=== PATIENT | male | born 1945 | race Caucasian/White ===

== ENCOUNTER 2018-02-05 14:25 | Inpatient (IN) | payer MEDICARE, OTHER ==
--- NOTE | 2018-02-05 15:02 | PDOC ---
Attending Attestation - Resident Resident Name: CharmaineJerilyn petit - HPI HPI: 02/05/18 15:36 Pt presents to the ED complaining of several days of fever without associated symptoms. Denies nausea or vomiting, abdominal pain, cough or shortness of breath. - Physicial Exam PE: 02/06/18 15:02 Agree with resident exam. Patient is alert and in no acute distress. Lungs are clear, abdomen is soft, non tender and non distended, heart has regular rate and rhythm but is tachycardic. - Medical Decision Making 02/06/18 15:03 Pt presents to the ED complaining of fever without associated symptoms. Febrile in the ED to 102. LAbs are within normal limits, lactate is 1.5, but given age and peristent fever, will check flu swab and admit for observation.
[2018-02-05] MEDS ORDERED: SODIUM CHLORIDE 0.9% 1000 ML INFUS.BAG IV STA (15:13)
[2018-02-05] MEDS ORDERED: ACETAMINOPHEN 1000 MG/100 ML VIAL (NON FORMULARY) IVPB ONE (15:32)
[2018-02-05] MEDS ORDERED: PIPERACILLIN/TAZOB 3.375 GM 3.375 GM in DEXTROSE 5%-WATER - 50 ML IVPB ONE (15:32)
[2018-02-05] MEDS ORDERED: ACETAMINOPHEN INJECTION 100 ML IVPB ONE (15:35)
[2018-02-05] MEDS ORDERED: PIPERACILLIN/TAZOB 3.375 GM 3.375 GM/50 ML BAG IVPB ONE (15:36)
--- NOTE | 2018-02-05 15:38 | PDOC ---
History of Present Illness - General Chief Complaint: SIRS, Suspected/Possible Stated Complaint: Cold Symptoms/fever Time Seen by Provider: 02/05/18 14:58 History Source: Patient, Family (daughter) Exam Limitations: Language Barrier - History of Present Illness Initial Comments: 02/05/18 15:36 Pt is a 72yo m with PMH of HTN, HLD, DM presenting to ED with fever, headache and lower back pain. Pt says has had fever and cough since , but did not want to come to the emergency room. He says that today when he was at work, somebody told him to get evaluated. Admits to constipation and lower urine output. Denies chest pain, SOB, palpitations, abominal pain, n/v/d, neck pain, recent surgery, recent travel, trauma, rashes, urinary symptoms. PCP: Zack PMH: see hpi PSH: see hpi Social: denies Allergies: nkda Meds: glipizide, metformin, see med rec Past History - Past Medical History Allergies/Adverse Reactions: Allergies Allergy/AdvReac Type Severity Reaction Status Date / Time No Known Allergies Allergy Verified 02/05/18 14:33 Home Medications: Ambulatory Orders Glipizide [Glucotrol -] 10 mg PO BID 08/21/15 Metformin HCl [Glucophage] 1,000 mg PO BID 08/21/15 Amlodipine Besylate [Norvasc -] 5 mg PO DAILY 02/05/18 Aspirin [ASA -] 81 mg PO DAILY 02/05/18 Atorvastatin Ca [Lipitor] 10 mg PO HS 02/05/18 COPD: No Diabetes: Yes HTN: Yes Hypercholesterolemia: Yes - Suicide/Smoking/Psychosocial Hx Smoking History: Never smoked Information on smoking cessation initiated: No Hx Alcohol Use: No Drug/Substance Use Hx: No Substance Use Type: None Review of Systems - Review of Systems Able to Perform ROS?: Yes Constitutional: Yes: Fever. No: Chills, Weakness HEENTM: No: Symptoms Reported Respiratory: Yes: Cough. No: Shortness of Breath, Hemoptysis Cardiac (ROS): No: Chest Pain, Lightheadedness, Palpitations, Syncope ABD/GI: Yes: Constipated. No: Diarrhea, Nausea, Rectal Bleeding, Vomiting, Tarry Stools : No: Symptoms Reported, Testicular Mass, Testicular Swelling, Testicular Pain Musculoskeletal: Yes: Back Pain (lower back pain) Integumentary: No: Symptoms Reported Neurological: Yes: Headache. No: Numbness, Tingling, Tremors *Physical Exam - Vital Signs Last Vital Signs Temp Pulse Resp BP Pulse Ox 102.2 F H 114 H 20 150/104 H 96 02/05/18 15:23 02/05/18 15:30 02/05/18 15:30 02/05/18 15:30 02/05/18 15:30 - Physical Exam General Appearance: Yes: Nourished, Appropriately Dressed. No: Apparent Distress HEENT: positive: EOMI, DAYLIN, Normal ENT Inspection, TMs Normal, Pharynx Normal Neck: positive: Trachea midline, Supple. negative: Carotid bruit, Lymphadenopathy (R), Lymphadenopathy (L) Respiratory/Chest: positive: Rapid RR, Decreased Breath Sounds (L lobes), Crackles (L lower lobes). negative: Lungs Clear, Normal Breath Sounds, Labored Respiration, Stridor, Wheezing Cardiovascular: positive: S1, S2, Tachycardia, Irregular. negative: Edema, JVD , Murmur Vascular Pulses: Carotid (R): 2+, Carotid (L): 2+, Dorsalis-Pedis (R): 2+, Doralis-Pedis (L): 2+ Gastrointestinal/Abdominal: positive: Normal Bowel Sounds, Soft, Protuberent. negative: Guarding, Rebound, Tenderness Musculoskeletal: negative: CVA Tenderness, Muscle Spasm Extremity: positive: Normal Capillary Refill, Pelvis Stable Integumentary: positive: Normal Color, Dry, Warm Neurologic: positive: policy manager II-XII NML intact, Fully Oriented, Alert, Normal Mood/ Affect, Normal Response, Motor Strength /5 ED Treatment Course - LABORATORY CBC & Chemistry Diagram: 02/05/18 15:52 02/05/18 15:23 - RADIOLOGY Radiology Studies Ordered: Category Date Time Status CHEST X-RAY PORTABLE* [RAD] Stat Radiology 02/05/18 15:13 Ordered - Medications Given in the ED: ED Medications Discontinued Medications Generic Name Dose Route Start Last Admin Trade Name Freq PRN Reason Stop Dose Admin Sodium Chloride 2,123 ml 02/05/18 15:13 02/05/18 15:22 Normal Saline - 30 ml/kg (2123 ml) 02/05/18 15:14 2,123 ml IV Administration ONCE STA Medical Decision Making - Medical Decision Making Pt is a 72yo m with PMH of HTN, HLD, DM presenting to ED with fever, headache and lower back pain. Pt says has had fever and cough since Vitals: tachycardic in 120s, febrile 102.2, saturating well on RA PE: decreased breath sounds and crackles in L lung wright. Warm to touch. DDx: sepsis, most likely pna. Pt meets SIRS criteria, will do sepsis workup. started on fluids, vanc and zosyn. given Tylenol iv. EKG: sinus with PAC. Lac 1.5, WBC 10.5, Na 130. UA negative CXR: left lobe infiltrate. tachy, tachypneic, normotensive, now saturating mid 90s. now copmlaining of SOB oral temp 103.3, saturating mid 90s. Given NC 2L. and ibuprofen 400mg. Will order ctab and ct chest CT consilidation in L lobe. REst of CT no pathology. Pt started on Levaquin (QTc normal). Will admit pt for Sepsis (2 sirs + source) due to pna. Pt tacycrdic and tachypneic but normotensive. Stable for floor. Pt admitted to hospitalist *DC/Admit/Observation/Transfer Diagnosis at time of Disposition: Sepsis Qualifiers: Sepsis type: sepsis due to unspecified organism Qualified Code(s): A41.9 - Sepsis, unspecified organism PNA (pneumonia) Qualifiers: Pneumonia type: due to unspecified organism Laterality: left Lung location: lower lobe of lung Qualified Code(s): J18.1 - Lobar pneumonia, unspecified organism - Discharge Dispostion Condition at time of disposition: Good Decision to Admit order: Yes - Referrals - Patient Instructions - Post Discharge Activity
[2018-02-05 15:41] LABS: VENOUS PC02 35.8 mmHg (38-52); VENOUS PH 7.44 (7.32-7.42); VENOUS PO2 40.9 mmHg (28-48)
[2018-02-05 15:42] LABS: INR 1.13 (0.83-1.09); PROTHROMBIN TIME (PATIENT) 13.3 SEC (9.7-13.0)
[2018-02-05 15:46] LABS: ACTIVATED PTT 24.2 SECONDS (25.2-36.5)
[2018-02-05 15:58] LABS: ALBUMIN 3.6 g/dl (3.4-5.0); ALK PHOS 81 U/L (45-117); ANION GAP 12 MMOL/L (8-16); BILIRUBIN,TOTAL 0.5 mg/dL (0.2-1); BLOOD UREA NITROGEN 28 mg/dL (7-18); CALCIUM 8.7 mg/dL (8.5-10.1); CHLORIDE 95 mmol/L (98-107); CO2 24 mmol/L (21-32); CREATININE 1.1 mg/dL (0.55-1.3); GLUCOSE,RANDOM 179 mg/dL (74-106); POTASSIUM 4.4 mmol/L (3.5-5.1); SGOT/AST 80 U/L (15-37); SGPT/ALT 53 U/L (13-61); SODIUM 130 mmol/L (136-145); TOT PROT 6.7 g/dl (6.4-8.2)
[2018-02-05 16:01] LABS: BASO % 0.2 % (0-2.0); HEMATOCRIT 39.4 % (35.4-49); HEMOGLOBIN 12.9 GM/dL (11.7-16.9); LYMPH % 7.3 % (8-40); MCH 29.3 pg (25.7-33.7); MCHC 32.7 g/dl (32.0-35.9); MEAN CELL VOLUME 89.4 fl (80-96); MEAN PLT VOLUME 10.5 fl (7.5-11.1); MONO % 4.6 % (3.8-10.2); NEUT % 87.9 % (42.8-82.8); PLATELET COUNT 152 K/MM3 (134-434); RBC 4.41 M/mm3 (4.00-5.60); WHITE BLOOD COUNT 10.5 K/mm3 (4.0-10.0)
[2018-02-05 16:19] LABS: PH,URINE 6.5 (5.0-8.0); URINE APPEARANCE CLEAR; URINE BILIRUBIN NEGATIVE (<2.0 mg/dL); URINE COLOR YELLOW; URINE GLUCOSE (UA) NEGATIVE (NEGATIVE); URINE KETONE 1+ (NEGATIVE); URINE PROTEIN 2+ (NEGATIVE)
[2018-02-05 16:20] LABS: URINE LEUK ESTERASE NEGATIVE (NEGATIVE); URINE NITRITE NEGATIVE (NEGATIVE); URINE UROBILINOGEN 4.0 E.U/dl mg/dL (0.2-1.0)
[2018-02-05 16:51] LABS: EPI CELLS 1+ /HPF (FEW); URIC ACID CRYSTALS 1+ /hpf (NONE SEEN); URINE BACTERIA 1+ /hpf (NONE SEEN)
[2018-02-05] MEDS ORDERED: IBUPROFEN 600 MG TABLET (FP) PO ONE ×3 (19:45→19:48)
[2018-02-05] MEDS ORDERED: SODIUM CHLORIDE 1,000 ML IV SCH (20:45)
--- NOTE | 2018-02-05 21:44 | HP ---
CHIEF COMPLAINT: fever HISTORY OF PRESENT ILLNESS: 72 year old male with a PMH of HTN, HLD, DM presented to the ED for fever since . Patient reports that it occurred randomly, without any preceding symptoms. Reports mild headache and back pain. 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 Currently, patient denies any chest pain, SOB, nausea, vomiting, diarrhea, chills, abdominal pain, cough. states that he still feels febrile. Patient denies any sick contacts. Reports visiting the [place] 3 months ago. Denies getting flu shot. ER course was notable for: (1) Tmax 103.3 (2) tachycardic 110 (3) CT chest + PNA in L lung Recent Travel: [place] ago PAST MEDICAL HISTORY: HTN, HLD, DM PAST SURGICAL HISTORY: denies Social History: Smoking: denies Alcohol: denies Drugs: denies Family History: denies Allergies No Known Allergies Allergy (Verified 02/05/18 14:33) HOME MEDICATIONS: Home Medications Medication Instructions Recorded Glipizide [Glucotrol -] 10 mg PO BID 08/21/15 Metformin HCl [Glucophage] 1,000 mg PO BID 08/21/15 Amlodipine Besylate [Norvasc -] 5 mg PO DAILY 02/05/18 Aspirin [ASA -] 81 mg PO DAILY 02/05/18 Atorvastatin Ca [Lipitor] 10 mg PO HS 02/05/18 REVIEW OF SYSTEMS CONSTITUTIONAL: fever Absent: chills, diaphoresis, generalized weakness, malaise, loss of appetite, weight change HEENT: Absent: rhinorrhea, nasal congestion, throat pain, throat swelling, difficulty swallowing, mouth swelling, ear pain, eye pain, visual changes CARDIOVASCULAR: Absent: chest pain, syncope, palpitations, irregular heart rate, lightheadedness , peripheral edema RESPIRATORY: Absent: cough, shortness of breath, dyspnea with exertion, orthopnea, wheezing, stridor, hemoptysis GASTROINTESTINAL: Absent: abdominal pain, abdominal distension, nausea, vomiting, diarrhea, constipation, melena, hematochezia GENITOURINARY: Absent: dysuria, frequency, urgency, hesitancy, hematuria, flank pain, genital pain MUSCULOSKELETAL: Absent: myalgia, arthralgia, joint swelling, back pain, neck pain SKIN: Absent: rash, itching, pallor HEMATOLOGIC/IMMUNOLOGIC: Absent: easy bleeding, easy bruising, lymphadenopathy, frequent infections ENDOCRINE: Absent: unexplained weight gain, unexplained weight loss, heat intolerance, cold intolerance NEUROLOGIC: Absent: headache, focal weakness or paresthesias, dizziness, unsteady gait, seizure, mental status changes, bladder or bowel incontinence PSYCHIATRIC: Absent: anxiety, depression, suicidal or homicidal ideation, hallucinations. PHYSICAL EXAMINATION Vital Signs - 24 hr 02/05/18 02/05/18 02/05/18 14:35 15:10 15:23 Temperature 102.2 F H 102.2 F H Pulse Rate 126 H 122 H Pulse Rate [ Left Radial] Respiratory 22 H Rate Blood Pressure 158/89 Blood Pressure [Right Arm] O2 Sat by Pulse 100 100 Oximetry (%) 02/05/18 02/05/18 02/05/18 15:30 16:13 16:19 Temperature Pulse Rate Pulse Rate [ 114 H 112 H Left Radial] Respiratory 20 20 Rate Blood Pressure Blood Pressure 150/104 H 128/86 [Right Arm] O2 Sat by Pulse 96 97 99 Oximetry (%) 02/05/18 17:51 Temperature 103.3 F H Pulse Rate Pulse Rate [ 110 H Left Radial] Respiratory 20 Rate Blood Pressure Blood Pressure 138/75 [Right Arm] O2 Sat by Pulse 98 Oximetry (%) GENERAL: A&Ox3, no acute distress EYES: PERRLA, EOMI ENT: Moist mucus membranes NECK: No JVD LUNGS: CTA, mild crackles noted in base of L upper lobe (or apex of L lower lobe ) HEART: RRR, no murmurs ABDOMEN: Soft, nontender, BS present MUSCULOSKELETAL: No CVA Tenderness EXTREMITIES: 2+ pulses, no edema. NEUROLOGICAL: Cranial nerves II-XII intact. Laboratory Results - last 24 hr 02/05/18 02/05/18 02/05/18 15:00 15:00 15:07 WBC Corrected WBC (auto) RBC Hgb Hct MCV MCH MCHC RDW Plt Count MPV Absolute Neuts (auto) Neutrophils % Lymphocytes % Monocytes % Eosinophils % Basophils % Nucleated RBC % Platelet Estimate Platelet Comment PT with INR INR PTT (Actin FS) VBG pH 7.44 H POC VBG pCO2 35.8 L POC VBG pO2 40.9 Mixed VBG HCO3 23.7 Sodium Potassium Chloride Carbon Dioxide Anion Gap BUN Creatinine Creat Clearance w eGFR Random Glucose Lactic Acid 1.5 Calcium Total Bilirubin AST ALT Alkaline Phosphatase Troponin I Total Protein Albumin Urine Color Yellow Urine Appearance Clear Urine pH 6.5 Ur Specific [facility] 1.020 Urine Protein 2+ H Urine Glucose (UA) Negative Urine Ketones 1+ H Urine Blood Negative Urine Nitrite Negative Urine Bilirubin Negative Urine Urobilinogen 4.0 e.u/dl Ur Leukocyte Esterase Negative Urine WBC (Auto) 0-3 Urine RBC (Auto) 0-3 Ur Epithelial Cells 1+ Uric Acid Crystals 1+ Urine Bacteria 1+ 02/05/18 02/05/18 02/05/18 15:23 15:23 15:23 WBC Cancelled Corrected WBC (auto) Cancelled RBC Cancelled Hgb Cancelled Hct Cancelled MCV Cancelled MCH Cancelled MCHC Cancelled RDW Cancelled Plt Count Cancelled MPV Cancelled Absolute Neuts (auto) Cancelled Neutrophils % Cancelled Lymphocytes % Cancelled Monocytes % Cancelled Eosinophils % Cancelled Basophils % Cancelled Nucleated RBC % Cancelled Platelet Estimate Cancelled Platelet Comment Cancelled PT with INR 13.30 H INR 1.13 H PTT (Actin FS) 24.2 L VBG pH POC VBG pCO2 POC VBG pO2 Mixed VBG HCO3 Sodium 130 L Potassium 4.4 Chloride 95 L Carbon Dioxide 24 Anion Gap 12 BUN 28 H Creatinine 1.1 Creat Clearance w eGFR > 60 Random Glucose 179 H Lactic Acid Calcium 8.7 Total Bilirubin 0.5 AST 80 H ALT 53 Alkaline Phosphatase 81 Troponin I Total Protein 6.7 Albumin 3.6 Urine Color Urine Appearance Urine pH Ur Specific [facility] Urine Protein Urine Glucose (UA) Urine Ketones Urine Blood Urine Nitrite Urine Bilirubin Urine Urobilinogen Ur Leukocyte Esterase Urine WBC (Auto) Urine RBC (Auto) Ur Epithelial Cells Uric Acid Crystals Urine Bacteria 02/05/18 02/05/18 15:23 15:52 WBC 10.5 H Corrected WBC (auto) RBC 4.41 Hgb 12.9 Hct 39.4 MCV 89.4 MCH 29.3 MCHC 32.7 RDW 14.0 Plt Count 152 D MPV 10.5 Absolute Neuts (auto) 9.2 H Neutrophils % 87.9 H D Lymphocytes % 7.3 L D Monocytes % 4.6 Eosinophils % 0.0 D Basophils % 0.2 Nucleated RBC % 0 Platelet Estimate Platelet Comment PT with INR INR PTT (Actin FS) VBG pH POC VBG pCO2 POC VBG pO2 Mixed VBG HCO3 Sodium Potassium Chloride Carbon Dioxide Anion Gap BUN Creatinine Creat Clearance w eGFR Random Glucose Lactic Acid Calcium Total Bilirubin AST ALT Alkaline Phosphatase Troponin I < 0.02 Total Protein Albumin Urine Color Urine Appearance Urine pH Ur Specific [facility] Urine Protein Urine Glucose (UA) Urine Ketones Urine Blood Urine Nitrite Urine Bilirubin Urine Urobilinogen Ur Leukocyte Esterase Urine WBC (Auto) Urine RBC (Auto) Ur Epithelial Cells Uric Acid Crystals Urine Bacteria ASSESSMENT/PLAN: 72 year old male with a PMH of HTN, HLD, DM presented to the ED for fever since and diagnosed with sepsis 2/2 pneumonia #Sepsis 2/2 Pneumonia: patient meets sepsis criteria and has L lobe consolidation suggestive of pneumonia -CT chest prelim [facility] read: "moderate airspace consolidation in superior segment of left lower lobe with associated air bronchograms suspicious for pneumonia" -Levaquin 750mg daily -ID consultation appreciated -normal saline @ 100cc/hr, 1 bag ordered -sputum cultures -blood cultures ordered -legionella antigen ordered -influenza swab negative #Hypertension: normotensive -continue amlodipine 5mg PO #Hyperlipidemia: chronic -continue atorvastatin 10mg PO #Diabetes Mellitus: chronic -hold home meds -BGMs -ISS #FEN NS @ 100cc/hr hyponatremic, repeat level in AM after hydration Sodium controlled diet #Prophylaxis -lovenox #Disposition -admit med surg Visit type - Emergency Visit Emergency Visit: Yes ED Registration Date: 02/05/18 Care time: The patient presented to the Emergency Department on the above date and was hospitalized for further evaluation of their emergent condition. - New Patient This patient is new to me today: Yes Date on this admission: 02/06/18 - Critical Care Critical Care patient: No
--- NOTE | 2018-02-05 22:31 | PN ---
Teaching Attending Note Name of Resident: Tai Carnes ATTENDING PHYSICIAN STATEMENT I saw and evaluated the patient. I reviewed the resident's note and discussed the case with the resident. I agree with the resident's findings and plan as documented. SUBJECTIVE: OBJECTIVE: ASSESSMENT AND PLAN: this is a 72 year old male with a PMH of HTN, HLD, DM presented to the ED for fever since . Reports mild headache and back pain. Currently, patient denies any chest pain, SOB, nausea, vomiting, diarrhea, chills, abdominal pain, cough. states that he still feels febrile. Patient denies any sick contacts. Reports [place] the [place] 3 [place] ago. Denies getting flu shot plan: admit for CAP start levofloxacin 750mg daily obtain legionella antigen ID evaluation c/w home medication f/u blood cultures
[2018-02-05] MEDS ORDERED: ATORVASTATIN CA 40 MG TABLET (FP) ONE (23:08)
[2018-02-05] MEDS ORDERED: ENOXAPARIN NA (PORCINE) 40 MG/0.4 ML DISP.SYRIN SQ ONE (23:09)
[2018-02-05] MEDS: ENOXAPARIN NA (PORCINE) 40 MG/0.4 ML DISP.SYRIN SQ SCH (23:09)
[2018-02-05] MEDS: ATORVASTATIN CA 10 MG TABLET (FP) PO SCH (23:09)
[2018-02-05] MEDS ORDERED: ATORVASTATIN CA 10 MG TABLET (FP) ONE (23:12)
[2018-02-06 01:49] VITALS: BMI 24.5
[2018-02-06] MEDS: ACETAMINOPHEN 325 MG TABLET (FP) PO PRN ×3 (05:40→17:49)
[2018-02-06] MEDS: INSULIN SLIDING SCALE (NOVOLOG) 1 VIAL SQ SCH ×5 (06:15→22:07)
[2018-02-06] MEDS ORDERED: INSULIN (NOVOLOG) ASPART 100 UNITS/ML 10ML VIAL ONE ×2 (06:42→22:03)
[2018-02-06] MEDS ORDERED: INSULIN (LEVEMIR) 100 UNITS/ML UNITS SQ ONE (06:43)
[2018-02-06 07:00] LABS: HEMATOCRIT 35.9 % (35.4-49); HEMOGLOBIN 11.9 GM/dL (11.7-16.9); MCH 29.3 pg (25.7-33.7); MCHC 33.2 g/dl (32.0-35.9); MEAN CELL VOLUME 88.2 fl (80-96); MEAN PLT VOLUME 9.3 fl (7.5-11.1); PLATELET COUNT 138 K/MM3 (134-434); RBC 4.07 M/mm3 (4.00-5.60); RDW 14.1 % (11.9-15.9); WHITE BLOOD COUNT 8.2 K/mm3 (4.0-10.0)
[2018-02-06 09:03] LABS: ANION GAP 14 MMOL/L (8-16); BLOOD UREA NITROGEN 15 mg/dL (7-18); CALCIUM 7.9 mg/dL (8.5-10.1); CHLORIDE 98 mmol/L (98-107); CO2 22 mmol/L (21-32); CREATININE 0.8 mg/dL (0.55-1.3); GLUCOSE,RANDOM 64 mg/dL (74-106); MAGNESIUM 1.5 mg/dL (1.8-2.4); PHOSPHOROUS 1.9 mg/dL (2.5-4.9); POTASSIUM 3.5 mmol/L (3.5-5.1); SODIUM 134 mmol/L (136-145)
--- NOTE | 2018-02-06 09:16 | PN ---
Progress Note (short form) - Note Progress Note: c/o generalized fatigue and cough. denies Cp, fever, chills, N/V/C/D Current Medications Generic Name Dose Route Start Last Admin Trade Name Maximiliano PRN Reason Stop Dose Admin Acetaminophen 650 mg 02/05/18 20:40 02/06/18 05:40 Tylenol - PO 650 mg Q4H PRN Administration FEVER Amlodipine Besylate 5 mg 02/06/18 10:00 Norvasc - PO DAILY [facility] Aspirin 81 mg 02/06/18 10:00 Asa - PO DAILY [facility]AR[facility]EN Atorvastatin Calcium 10 mg 02/05/18 22:00 02/05/18 23:09 Lipitor - PO 10 mg HS FARHEEN Administration Enoxaparin Sodium 40 mg 02/05/18 21:00 02/05/18 23:09 Lovenox - SQ 40 mg DAILY [facility] Administration Levofloxacin 750 mg in 150 mls @ 100 mls/hr 02/05/18 21:00 02/05/18 22:09 Levaquin 750 Mg Premixed Ivpb - IVPB 100 mls/hr DAILY FARHEEN Administration Protocol Influenza Virus Vaccine Quadrival 60 mcg 02/06/18 10:00 Flulaval Quad [id number] IM 02/06/18 10:01 .ONCE ONE Insulin Aspart 0 vial 02/05/18 22:00 02/06/18 08:13 Novolog Vial Sliding Scale - SQ Not Given ACHS [facility] Protocol Last Vital Signs Temp Pulse Resp BP Pulse Ox 103.1 F H 128 H 24 H 121/74 97 02/06/18 05:48 02/06/18 05:48 02/06/18 05:48 02/06/18 05:48 02/06/18 01:08 General NAD, slightly diaphoretic CV S1 S2 tachy Lungs rhonchi L base, no wheezing Abdomen soft NT/ND Extremities no pedal edema CBCD WBC 8.2 K/mm3 (4.0-10.0) 02/06/18 06:30 RBC 4.07 M/mm3 (4.00-5.60) 02/06/18 06:30 Hgb 11.9 GM/dL (11.7-16.9) 02/06/18 06:30 Hct 35.9 % (35.4-49) 02/06/18 06:30 MCV 88.2 fl (80-96) 02/06/18 06:30 MCHC 33.2 g/dl (32.0-35.9) 02/06/18 06:30 RDW 14.1 % (11.9-15.9) 02/06/18 06:30 Plt Count 138 K/MM3 (134-434) 02/06/18 06:30 MPV 9.3 fl (7.5-11.1) D 02/06/18 06:30 CMP Sodium 134 mmol/L (136-145) L 02/06/18 06:30 Potassium 3.5 mmol/L (3.5-5.1) 02/06/18 06:30 Chloride 98 mmol/L (98-107) 02/06/18 06:30 Carbon Dioxide 22 mmol/L (21-32) 02/06/18 06:30 Anion Gap 14 MMOL/L (8-16) 02/06/18 06:30 BUN 15 mg/dL (7-18) 02/06/18 06:30 Creatinine 0.8 mg/dL (0.55-1.3) 02/06/18 06:30 Creat Clearance w eGFR > 60 (>60) 02/06/18 06:30 Calcium 7.9 mg/dL (8.5-10.1) L 02/06/18 06:30 Total Bilirubin 0.5 mg/dL (0.2-1) 02/05/18 15:23 AST 80 U/L (15-37) H 02/05/18 15:23 ALT 53 U/L (13-61) 02/05/18 15:23 Alkaline Phosphatase 81 U/L (45-117) 02/05/18 15:23 Total Protein 6.7 g/dl (6.4-8.2) 02/05/18 15:23 Albumin 3.6 g/dl (3.4-5.0) 02/05/18 15:23 Microbiology 02/05/18 16:41 Nasopharyngeal Swab Influenza Types A,B Antigen - Final 02/05/18 16:41 Nasopharyngeal Swab - Final A/P 72yo M with PMH HTN, DM and dyslipidemia presented to the ER with Fevers and constituitional symptoms and found to be septic due to PNA 1. Sepsis due to PNA- Tm103.3. remains tachycardic. will give 1 L NS bolus and cont NS @100cc/H, on Levaquin day 2. ID was consulted. Flu swab negative. f/u Legionella 2. Hyponatremia- possible dehydration. improved. 3. Hypomagnesemia- Mg po 4. Hypophosphatemia- Neutraphos 5. HTN- controlled. on home meds 6. DM- hold oral agents. ISS and BGM 7. DVT ppx- lovenox Visit type - Emergency Visit Emergency Visit: Yes ED Registration Date: 02/05/18 Care time: The patient presented to the Emergency Department on the above date and was hospitalized for further evaluation of their emergent condition. - New Patient This patient is new to me today: Yes Date on this admission: 02/06/18 - Critical Care Critical Care patient: No - Discharge Referral Referred to [facility] No
[2018-02-06] MEDS ORDERED: FLU VACCINE QUAD 60 MCG/0.5 ML (MDV 18-19) IM ONE (10:00)
[2018-02-06] MEDS ORDERED: SODIUM CHLORIDE 1,000 ML IV STA (10:01)
[2018-02-06] MEDS: ENOXAPARIN NA (PORCINE) 40 MG/0.4 ML DISP.SYRIN SQ SCH (10:49)
[2018-02-06] MEDS: amLODIPine BESYLATE 5 MG TABLET (FP) PO SCH (10:49)
[2018-02-06] MEDS: ASPIRIN 81 MG CHEWABLE TABLETS PO SCH (10:49)
[2018-02-06] MEDS: SODIUM CHLORIDE 1,000 ML IV SCH (10:50)
[2018-02-06] MEDS: NAPH,MB-DB/K PH,MBDB POWDER PACKET PO ONE ×2 (11:01→11:54)
[2018-02-06] MEDS: MAGNESIUM OXIDE 400 MG TABLET (FP) PO ONE ×2 (11:01→11:53)
--- NOTE | 2018-02-06 11:50 | PN ---
Progress Note (short form) - Note Progress Note: ID Consult dictated Community acquired v. atypical L pneumonia Possible sepsis secondary to pneumonia Pending sepsis workup empiric ceftriaxone/ levaquin
--- NOTE | 2018-02-06 13:33 | CONS ---
DATE OF CONSULTATION: DATE OF DICTATION: 02/06/2018 The patient is a 72-year-old male evaluated for left-sided pneumonia. He was admitted to the hospital on February 05, 2018, with complaints of fever, headache, and cough. He reports that symptoms began around , February 03, 2018. He presented to the emergency room, where he was febrile to 102 and tachycardic. A chest x-ray showed a left-sided pneumonia. A CAT scan, which had not been officially read, shows what appears to be a dense left lower lobe consolidation. Patient is noted to have cough, however, he reports difficulty expectorating sputum. He denies any hemoptysis. No complaints of dyspnea or pleuritic-type chest pain. Patient lives at home in the community. He denies any ill contacts. No recent hospitalizations. No recent antibiotic therapy. He works in a grocery store, is a nonsmoker. He traveled to the [place] 3 months ago and was well while he was there. He has not received pneumococcal or influenza vaccines. Past medical history positive for hypertension, hyperlipidemia, diabetes mellitus. No known allergies. MEDICATIONS: Glucotrol, Glucophage, Tylenol, Norvasc, Lipitor, aspirin. SOCIAL HISTORY: As per HPI. SYSTEMS REVIEW: Neurologic: No loss of consciousness, seizure activity, or focal weakness. Cardiac: Negative chest pain or palpitations. Respiratory: Negative cough or sputum production. Gastrointestinal: Negative vomiting or diarrhea. Genitourinary: Negative for urinary tract infection. LABORATORY DATA: White count 8.2, hematocrit 35.9, platelet count 138. Creatinine 0.8. Urinalysis: 0 to 3 white cells, phosphorus 1.9. Flu swab negative. Legionella antigen negative. PHYSICAL EXAMINATION: General: He is supine in bed, awake and alert, in no acute distress. His breathing is non-labored. He is noted to have cough. Vital Signs: T-max 103.1. Blood pressure 120/74. Pulse 128, regular. Respirations 20 per minute. Eyes: Sclerae anicteric. Heart Sounds: S1, S2. Lungs: Rales at the left base and midlung field. Abdomen: Soft. No tenderness elicited. No mass, rebound or rigidity. Extremities: Negative for edema. IMPRESSION: 1. Community-acquired versus atypical left-sided pneumonia. 2. Possible sepsis secondary to pneumonia. 3. Diabetes mellitus. Await sputum culture, blood cultures. Empiric antibiotic coverage with ceftriaxone 2 g IV piggyback daily and Levaquin 750 mg IV piggyback daily. Further recommendations pending cultures. Will follow. Thank you for the kind referral. DOMINGUEZ MOORE M.D. [id number]
[2018-02-06] MEDS ORDERED: DEXTROSE 5%-WATER 100 ML IVPB ONE (13:44)
[2018-02-06] MEDS: CEFTRIAXONE 2 GM in DEXTROSE 5%-WATER 100 ML IVPB SCH (13:56)
--- NOTE | 2018-02-06 14:02 | EKG ---
Test Reason : Blood Pressure : / mmHG Vent. Rate : 119 BPM Atrial Rate : 119 BPM P-R Int : 144 ms QRS Dur : 064 ms QT Int : 318 ms P-R-T Axes : 050 010 026 degrees QTc Int : 447 ms POOR DATA QUALITY, INTERPRETATION MAY BE ADVERSELY AFFECTED SINUS TACHYCARDIA WITH PREMATURE ATRIAL COMPLEXES NONSPECIFIC ST ABNORMALITY ABNORMAL ECG NO PREVIOUS ECGS AVAILABLE Confirmed by MD Lita, Raul ([id number]) on 02/06/2018 2:01:50 PM Referred By: Confirmed By:Raul London MD
[2018-02-06] MEDS: ATORVASTATIN CA 10 MG TABLET (FP) PO SCH (22:05)
[2018-02-07] MEDS: SODIUM CHLORIDE 1,000 ML IV SCH ×3 (03:15→15:37)
[2018-02-07 06:19] LABS: BASO % 0.2 % (0-2.0); HEMATOCRIT 35.3 % (35.4-49); HEMOGLOBIN 11.8 GM/dL (11.7-16.9); LYMPH % 15.4 % (8-40); MCH 29.2 pg (25.7-33.7); MCHC 33.3 g/dl (32.0-35.9); MEAN CELL VOLUME 87.7 fl (80-96); MEAN PLT VOLUME 9.8 fl (7.5-11.1); MONO % 6.8 % (3.8-10.2); NEUT % 77.6 % (42.8-82.8); PLATELET COUNT 139 K/MM3 (134-434); RBC 4.03 M/mm3 (4.00-5.60); RDW 13.9 % (11.9-15.9); WHITE BLOOD COUNT 6.8 K/mm3 (4.0-10.0)
[2018-02-07] MEDS: INSULIN SLIDING SCALE (NOVOLOG) 1 VIAL SQ SCH ×4 (06:20→21:07)
[2018-02-07 06:36] LABS: ANION GAP 13 MMOL/L (8-16); BLOOD UREA NITROGEN 11 mg/dL (7-18); CALCIUM 7.4 mg/dL (8.5-10.1); CHLORIDE 93 mmol/L (98-107); CO2 25 mmol/L (21-32); CREATININE 0.8 mg/dL (0.55-1.3); GLUCOSE,RANDOM 144 mg/dL (74-106); MAGNESIUM 1.5 mg/dL (1.8-2.4); PHOSPHOROUS 1.8 mg/dL (2.5-4.9); POTASSIUM 3.1 mmol/L (3.5-5.1); SODIUM 130 mmol/L (136-145)
[2018-02-07] MEDS ORDERED: POTASSIUM CHLORIDE TABS 20 MEQ TABLET.ER (FP) PO ONE (06:45)
[2018-02-07] MEDS ORDERED: MAGNESIUM OXIDE 400 MG TABLET (FP) PO ONE (06:48)
--- NOTE | 2018-02-07 08:23 | PN ---
Physical Exam: SUBJECTIVE: Patient seen and examined at bedside. NO acute events overnight- patient had a low grade of 100.3 overnight and only needed to get tylenol once. He is still having a cough, however, it is non-productive. He denies any chest pain/shortness of breath/nausea or vomiting OBJECTIVE: Vital Signs Period Temp Pulse Resp BP Sys/Schwartz Pulse Ox Last 24 Hr 100.3 F-103.4 F 112-116 16-20 107-136/68-74 97-97 GENERAL: The patient is awake, alert, resting comfortably, in no acute distress. EYES:no scleral icterus NECK: no JVD appreciated LUNGS slight rhonchi appreciated at the left lung base HEART: Regular rate and rhythm, S1, S2 without murmur, rub or gallop. ABDOMEN: Soft, nontender, nondistended, normoactive bowel sounds, no guarding, no rebound, no hepatosplenomegaly, no masses. EXTREMITIES: 2+ pulses, warm, well-perfused, no edema.. PSYCH: Normal mood, normal affect. SKIN: Warm, dry, normal turgor, no rashes or lesions noted Laboratory Results - last 24 hr 02/06/18 02/06/18 02/06/18 06:30 11:52 17:43 WBC RBC Hgb Hct MCV MCH MCHC RDW Plt Count MPV Absolute Neuts (auto) Neutrophils % Lymphocytes % Monocytes % Eosinophils % Basophils % Nucleated RBC % Sodium 134 L Potassium 3.5 Chloride 98 Carbon Dioxide 22 Anion Gap 14 BUN 15 Creatinine 0.8 Creat Clearance w eGFR > 60 POC Glucometer 132 127 Random Glucose 64 L Calcium 7.9 L Phosphorus 1.9 L Magnesium 1.5 L 02/06/18 02/07/18 02/07/18 21:59 05:30 05:30 WBC 6.8 RBC 4.03 Hgb 11.8 Hct 35.3 L MCV 87.7 MCH 29.2 MCHC 33.3 RDW 13.9 Plt Count 139 MPV 9.8 Absolute Neuts (auto) 5.3 Neutrophils % 77.6 Lymphocytes % 15.4 D Monocytes % 6.8 Eosinophils % 0.0 Basophils % 0.2 Nucleated RBC % 0 Sodium 130 L Potassium 3.1 L Chloride 93 L Carbon Dioxide 25 Anion Gap 13 BUN 11 Creatinine 0.8 Creat Clearance w eGFR > 60 POC Glucometer 194 Random Glucose 144 H Calcium 7.4 L Phosphorus 1.8 L Magnesium 1.5 L 02/07/18 06:18 WBC RBC Hgb Hct MCV MCH MCHC RDW Plt Count MPV Absolute Neuts (auto) Neutrophils % Lymphocytes % Monocytes % Eosinophils % Basophils % Nucleated RBC % Sodium Potassium Chloride Carbon Dioxide Anion Gap BUN Creatinine Creat Clearance w eGFR POC Glucometer 145 Random Glucose Calcium Phosphorus Magnesium Active Medications Generic Name Dose Route Start Last Admin Trade Name Freq PRN Reason Stop Dose Admin Acetaminophen 650 mg 02/05/18 20:40 02/06/18 17:49 Tylenol - PO 650 mg Q4H PRN Administration FEVER Amlodipine Besylate 5 mg 02/06/18 10:00 02/06/18 10:49 Norvasc - PO 5 mg DAILY FARHEEN Administration Aspirin 81 mg 02/06/18 10:00 02/06/18 10:49 Asa - PO 81 mg DAILY FARHEEN Administration Atorvastatin Calcium 10 mg 02/05/18 22:00 02/06/18 22:05 Lipitor - PO 10 mg HS FARHEEN Administration Enoxaparin Sodium 40 mg 02/05/18 21:00 02/06/18 10:49 Lovenox - SQ 40 mg DAILY FARHEEN Administration Levofloxacin 750 mg in 150 mls @ 100 mls/hr 02/05/18 21:00 02/06/18 10:50 Levaquin 750 Mg Premixed Ivpb - IVPB 100 mls/hr DAILY FARHEEN Administration Protocol Sodium Chloride 1,000 mls @ 100 mls/hr 02/06/18 10:15 02/07/18 03:15 Normal Saline - IV 100 mls/hr ASDIR FARHEEN Administration Ceftriaxone Sodium 2 gm/ 100 mls @ 100 mls/hr 02/06/18 12:00 02/06/18 13:56 Dextrose IVPB 100 mls/hr DAILY FARHEEN Administration Protocol Insulin Aspart 0 vial 02/05/18 22:00 02/07/18 06:20 Novolog Vial Sliding Scale - SQ Not Given ACHS FARHEEN Protocol Potassium Phos/Sodium Phos 1 packet 02/07/18 10:00 Phos-Nak Packet - PO DAILY FARHEEN ASSESSMENT/PLAN: 72 y/o male with PMH of HTN, HLD, DM, who presented to the emergency room with fevers, cough and constitutional symptoms found to have a left lower love consolidation consistent with pneumonia. # Sepsis 2/2 PNA: Tmax overnight was 100.3 -flu swab negative -presumptive legionella antigen negative -Levaquin 750mg day 3 -Ceftriaxone 2grams day 2 -ID on board- recs appreciated -tylenol 650 PRN for fevers #HTN BP is well controlled -c/w home medications #DM -ISS -BGMS ACHS #HLD atorvastatin 10 daily F/E/N NS @100mls/hr hyponatremia- repleted and monitor hypokalemmia- repleted and monitor hypophosphatemia-repleted and monitor hypomagnesium- repleted and monitor diabetic diet PPX: lovenox Problem List - Problems (1) PNA (pneumonia) Code(s): J18.9 - PNEUMONIA, UNSPECIFIED ORGANISM Qualifiers: Pneumonia type: due to unspecified organism Laterality: left Lung location: lower lobe of lung Qualified Code(s): J18.1 - Lobar pneumonia, unspecified organism (2) Sepsis Code(s): A41.9 - SEPSIS, UNSPECIFIED ORGANISM Qualifiers: Sepsis type: sepsis due to unspecified organism Qualified Code(s): A41.9 - Sepsis, unspecified organism Visit type - Emergency Visit Emergency Visit: Yes ED Registration Date: 02/05/18 Care time: The patient presented to the Emergency Department on the above date and was hospitalized for further evaluation of their emergent condition. - New Patient This patient is new to me today: No - Critical Care Critical Care patient: No
[2018-02-07] MEDS ORDERED: DEXTROSE 5%-WATER 100 ML IVPB ONE (09:41)
[2018-02-07] MEDS: NAPH,MB-DB/K PH,MBDB POWDER PACKET PO SCH (09:51)
[2018-02-07] MEDS: ENOXAPARIN NA (PORCINE) 40 MG/0.4 ML DISP.SYRIN SQ SCH (09:51)
[2018-02-07] MEDS: ASPIRIN 81 MG CHEWABLE TABLETS PO SCH (09:51)
[2018-02-07] MEDS: amLODIPine BESYLATE 5 MG TABLET (FP) PO SCH (09:51)
[2018-02-07] MEDS: CEFTRIAXONE 2 GM in DEXTROSE 5%-WATER 100 ML IVPB SCH (11:21)
--- NOTE | 2018-02-07 13:41 | PN ---
Teaching Attending Note Name of Resident: Rochelle Santacruz ATTENDING PHYSICIAN STATEMENT I saw and evaluated the patient. I reviewed the resident's note and discussed the case with the resident. I agree with the resident's findings and plan as documented. SUBJECTIVE:states he feels better today but continues to have cough. Denies Cp, fever or chills OBJECTIVE: Last Vital Signs Temp Pulse Resp BP Pulse Ox 98.6 F 74 20 106/79 97 02/07/18 09:33 02/07/18 09:33 02/07/18 09:33 02/07/18 09:33 02/06/18 21:00 General NAD Lungs Crackles L base. improved respiratory effort ASSESSMENT AND PLAN: 72yo M with PMH HTN, DM and dyslipidemia presented to the ER with Fevers and constituitional symptoms and found to be septic due to PNA 1. Sepsis due to PNA- Tm103.4. clinically appears confused. can d/c IVF if eating well. Ceftriaxone started yesterday. cont Levaquin day 3. ID was consulted. Flu swab negative. f/u Legionella 2. Hyponatremia- possible dehydration. improved. 3. Hypomagnesemia- Mg po 4. Hypophosphatemia- Neutraphos 5. HTN- controlled. on home meds 6. DM- hold oral agents. ISS and BGM 7. DVT ppx- lovenox
[2018-02-07] MEDS: ACETAMINOPHEN 325 MG TABLET (FP) PO PRN ×2 (13:46→21:03)
--- NOTE | 2018-02-07 14:25 | PN ---
Progress Note, Physician History of Present Illness: Reports cough with scant sputum production No c/o chest pain or dyspnea Remains febrile WBC improved - Current Medication List Current Medications: Active Medications Acetaminophen (Tylenol -) 650 mg PO Q4H PRN PRN Reason: FEVER Last Admin: 02/07/18 13:46 Dose: 650 mg Amlodipine Besylate (Norvasc -) 5 mg PO DAILY FARHEEN Last Admin: 02/07/18 09:51 Dose: 5 mg Aspirin (Asa -) 81 mg PO DAILY FARHEEN Last Admin: 02/07/18 09:51 Dose: 81 mg Atorvastatin Calcium (Lipitor -) 10 mg PO HS FARHEEN Last Admin: 02/06/18 22:05 Dose: 10 mg Enoxaparin Sodium (Lovenox -) 40 mg SQ DAILY FARHEEN Last Admin: 02/07/18 09:51 Dose: 40 mg Levofloxacin (Levaquin 750 Mg Premixed Ivpb -) 750 mg in 150 mls @ 100 mls/hr IVPB DAILY FARHEEN; Protocol Last Admin: 02/07/18 09:51 Dose: 100 mls/hr Sodium Chloride (Normal Saline -) 1,000 mls @ 100 mls/hr IV ASDIR FARHEEN Last Admin: 02/07/18 11:22 Dose: Not Given Ceftriaxone Sodium 2 gm/ (Dextrose) 100 mls @ 100 mls/hr IVPB DAILY FARHEEN; Protocol Last Admin: 02/07/18 11:21 Dose: 100 mls/hr Insulin Aspart (Novolog Vial Sliding Scale -) 0 vial SQ ACHS FARHEEN; Protocol Last Admin: 02/07/18 12:09 Dose: 2 units Potassium Phos/Sodium Phos (Phos-Nak Packet -) 1 packet PO DAILY FARHEEN Last Admin: 02/07/18 09:51 Dose: 1 packet - Objective Vital Signs: Vital Signs Temperature 98.6 F 02/07/18 09:33 Pulse Rate 74 02/07/18 09:33 Respiratory Rate 20 02/07/18 09:33 Blood Pressure 106/79 02/07/18 09:33 O2 Sat by Pulse Oximetry (%) 97 02/06/18 21:00 Constitutional: Yes: No Distress Cardiovascular: Yes: Regular Rate and Rhythm, S1, S2 Respiratory: Yes: Other (crepitations, bases) Gastrointestinal: Yes: Normal Bowel Sounds, Soft. No: Tenderness Edema: No Labs: CBC, BMP 02/07/18 05:30 02/07/18 05:30 INR, PTT INR 1.13 (0.83-1.09) H 02/05/18 15:23 Assessment/Plan Community acquired v. atypical LLL pneumonia R/O sepsis secondary to pneumonia Await c/s Continue ceftriaxone/ levaquin
[2018-02-07] MEDS: ATORVASTATIN CA 10 MG TABLET (FP) PO SCH (21:04)
[2018-02-08] MEDS: SODIUM CHLORIDE 1,000 ML IV SCH ×2 (02:45→12:26)
[2018-02-08] MEDS: INSULIN SLIDING SCALE (NOVOLOG) 1 VIAL SQ SCH ×4 (06:01→21:18)
[2018-02-08 07:40] LABS: HEMATOCRIT 36.6 % (35.4-49); HEMOGLOBIN 12.2 GM/dL (11.7-16.9); MCH 29.4 pg (25.7-33.7); MCHC 33.3 g/dl (32.0-35.9); MEAN CELL VOLUME 88.2 fl (80-96); MEAN PLT VOLUME 9.7 fl (7.5-11.1); PLATELET COUNT 158 K/MM3 (134-434); RBC 4.15 M/mm3 (4.00-5.60); RDW 14.2 % (11.9-15.9); WHITE BLOOD COUNT 5.8 K/mm3 (4.0-10.0)
[2018-02-08 08:00] LABS: ANION GAP 12 MMOL/L (8-16); BLOOD UREA NITROGEN 13 mg/dL (7-18); CALCIUM 8.2 mg/dL (8.5-10.1); CHLORIDE 95 mmol/L (98-107); CO2 24 mmol/L (21-32); CREATININE 0.8 mg/dL (0.55-1.3); GLUCOSE,RANDOM 137 mg/dL (74-106); MAGNESIUM 1.7 mg/dL (1.8-2.4); PHOSPHOROUS 2.7 mg/dL (2.5-4.9); SODIUM 132 mmol/L (136-145)
[2018-02-08] MEDS ORDERED: MAGNESIUM OXIDE 400 MG TABLET (FP) PO ONE (08:45)
[2018-02-08] MEDS ORDERED: DEXTROSE 5%-WATER 100 ML IVPB ONE (09:31)
--- NOTE | 2018-02-08 10:43 | PN ---
Progress Note, Physician History of Present Illness: OOB in chair Denies cough/ sputum No c/o chest pain or dyspnea Remains febrile WBC improved - Current Medication List Current Medications: Active Medications Acetaminophen (Tylenol -) 650 mg PO Q4H PRN PRN Reason: FEVER Last Admin: 02/07/18 21:03 Dose: 650 mg Amlodipine Besylate (Norvasc -) 5 mg PO DAILY [facility] Last Admin: 02/07/18 09:51 Dose: 5 mg Aspirin (Asa -) 81 mg PO DAILY FARHEEN Last Admin: 02/07/18 09:51 Dose: 81 mg Atorvastatin Calcium (Lipitor -) 10 mg PO HS [facility] Last Admin: 02/07/18 21:04 Dose: 10 mg Enoxaparin Sodium (Lovenox -) 40 mg SQ DAILY FARHEEN Last Admin: 02/07/18 09:51 Dose: 40 mg Levofloxacin (Levaquin 750 Mg Premixed Ivpb -) 750 mg in 150 mls @ 100 mls/hr IVPB DAILY FARHEEN; Protocol Last Admin: 02/07/18 09:51 Dose: 100 mls/hr Sodium Chloride (Normal Saline -) 1,000 mls @ 100 mls/hr IV ASDIR FARHEEN Last Admin: 02/08/18 02:45 Dose: 100 mls/hr Ceftriaxone Sodium 2 gm/ (Dextrose) 100 mls @ 100 mls/hr IVPB DAILY FARHEEN; Protocol Last Admin: 02/07/18 11:21 Dose: 100 mls/hr Insulin Aspart (Novolog Vial Sliding Scale -) 0 vial SQ ACHS FARHEEN; Protocol Last Admin: 02/08/18 06:01 Dose: 2 units Potassium Phos/Sodium Phos (Phos-Nak Packet -) 1 packet PO DAILY FARHEEN Last Admin: 02/07/18 09:51 Dose: 1 packet - Objective Vital Signs: Vital Signs Temperature 99.1 F 02/08/18 10:11 Pulse Rate 78 02/08/18 10:11 Respiratory Rate 20 02/08/18 10:11 Blood Pressure 108/63 02/08/18 10:11 O2 Sat by Pulse Oximetry (%) 97 02/07/18 21:00 Constitutional: Yes: No Distress Eyes: Yes: Conjunctiva Clear Cardiovascular: Yes: Regular Rate and Rhythm, S1, S2 Respiratory: Yes: Other (rales L base) Gastrointestinal: Yes: Normal Bowel Sounds, Soft. No: Tenderness Edema: Yes Edema: LLE: 1+, RLE: 1+ Labs: CBC, BMP 02/08/18 06:30 02/08/18 06:30 INR, PTT INR 1.13 (0.83-1.09) H 02/05/18 15:23 Assessment/Plan Community acquired v. atypical LLL pneumonia R/O sepsis secondary to pneumonia Continue ceftriaxone/ levaquin
[2018-02-08] MEDS: CEFTRIAXONE 2 GM in DEXTROSE 5%-WATER 100 ML IVPB SCH (11:04)
--- NOTE | 2018-02-08 11:18 | PN ---
Physical Exam: SUBJECTIVE: Patient seen and examined at bedside. States he is feeling better and his cough is improving. he did ahve a fever TMAX of 102.9 overnight. He denies any CP/SOB/N OBJECTIVE: Vital Signs Period Temp Pulse Resp BP Sys/Schwartz Pulse Ox Last 24 Hr 99.0 F-102.9 F 78-106 18-20 108-122/57-84 97 GENERAL: The patient is awake, alert, and fully oriented, in no acute distress. HEAD: Normal with no signs of trauma. EYES: PERRL, extraocular movements intact, sclera anicteric, conjunctiva clear. No ptosis. ENT: Ears normal, nares patent, oropharynx clear without exudates, moist mucous membranes. NECK: Trachea midline, full range of motion, supple. LUNGS: Breath sounds equal, clear to auscultation bilaterally, no wheezes, no crackles, no accessory muscle use. HEART: Regular rate and rhythm, S1, S2 without murmur, rub or gallop. ABDOMEN: Soft, nontender, nondistended, normoactive bowel sounds, no guarding, no rebound, no hepatosplenomegaly, no masses. EXTREMITIES: 2+ pulses, warm, well-perfused, no edema. NEUROLOGICAL: Cranial nerves II through XII grossly intact. Normal speech, gait not observed. PSYCH: Normal mood, normal affect. SKIN: Warm, dry, normal turgor, no rashes or lesions noted Laboratory Results - last 24 hr 02/07/18 02/07/18 02/07/18 12:08 16:53 21:06 WBC RBC Hgb Hct MCV MCH MCHC RDW Plt Count MPV Sodium Potassium Chloride Carbon Dioxide Anion Gap BUN Creatinine Creat Clearance w eGFR POC Glucometer 171 138 181 Random Glucose Calcium Phosphorus Magnesium 02/08/18 02/08/18 02/08/18 05:58 06:30 06:30 WBC 5.8 RBC 4.15 Hgb 12.2 Hct 36.6 MCV 88.2 MCH 29.4 MCHC 33.3 RDW 14.2 Plt Count 158 MPV 9.7 Sodium 132 L Potassium 4.0 Chloride 95 L Carbon Dioxide 24 Anion Gap 12 BUN 13 Creatinine 0.8 Creat Clearance w eGFR > 60 POC Glucometer 152 Random Glucose 137 H Calcium 8.2 L Phosphorus 2.7 Magnesium 1.7 L Active Medications Generic Name Dose Route Start Last Admin Trade Name Freq PRN Reason Stop Dose Admin Acetaminophen 650 mg 02/05/18 20:40 02/07/18 21:03 Tylenol - PO 650 mg Q4H PRN Administration FEVER Amlodipine Besylate 5 mg 02/06/18 10:00 02/07/18 09:51 Norvasc - PO 5 mg DAILY FARHEEN Administration Aspirin 81 mg 02/06/18 10:00 02/07/18 09:51 Asa - PO 81 mg DAILY FARHEEN Administration Atorvastatin Calcium 10 mg 02/05/18 22:00 02/07/18 21:04 Lipitor - PO 10 mg HS FARHEEN Administration Enoxaparin Sodium 40 mg 02/05/18 21:00 02/07/18 09:51 Lovenox - SQ 40 mg DAILY FARHEEN Administration Levofloxacin 750 mg in 150 mls @ 100 mls/hr 02/05/18 21:00 02/07/18 09:51 Levaquin 750 Mg Premixed Ivpb - IVPB 100 mls/hr DAILY FARHEEN Administration Protocol Sodium Chloride 1,000 mls @ 100 mls/hr 02/06/18 10:15 02/08/18 02:45 Normal Saline - IV 100 mls/hr ASDIR FARHEEN Administration Ceftriaxone Sodium 2 gm/ 100 mls @ 100 mls/hr 02/06/18 12:00 02/08/18 11:04 Dextrose IVPB 100 mls/hr DAILY FARHEEN Administration Protocol Insulin Aspart 0 vial 02/05/18 22:00 02/08/18 06:01 Novolog Vial Sliding Scale - SQ 2 units ACHS FARHEEN Administration Protocol Potassium Phos/Sodium Phos 1 packet 02/07/18 10:00 02/07/18 09:51 Phos-Nak Packet - PO 1 packet DAILY FARHEEN Administration ASSESSMENT/PLAN: 72 y/o male with PMH of HTN, HLD, DM, who presented to the emergency room with fevers, cough and constitutional symptoms found to have a left lower love consolidation consistent with pneumonia. # Sepsis 2/2 PNA: Tmax overnight was 102.9 -presumptive legionella antigen negative -Levaquin 750mg day 4 -Ceftriaxone 2grams day 3 -ID on board- recs appreciated -tylenol 650 PRN for fevers #HTN BP is well controlled -c/w home medications #DM -ISS -BGMS ACHS #HLD atorvastatin 10 daily F/E/N NS @100mls/hr hypomagnesium- repleted diabetic diet PPX: lovenox Problem List - Problems (1) PNA (pneumonia) Code(s): J18.9 - PNEUMONIA, UNSPECIFIED ORGANISM Qualifiers: Pneumonia type: due to unspecified organism Laterality: left Lung location: lower lobe of lung Qualified Code(s): J18.1 - Lobar pneumonia, unspecified organism (2) Sepsis Code(s): A41.9 - SEPSIS, UNSPECIFIED ORGANISM Qualifiers: Sepsis type: sepsis due to unspecified organism Qualified Code(s): A41.9 - Sepsis, unspecified organism Visit type - Emergency Visit Emergency Visit: Yes ED Registration Date: 02/05/18 Care time: The patient presented to the Emergency Department on the above date and was hospitalized for further evaluation of their emergent condition. - New Patient This patient is new to me today: No - Critical Care Critical Care patient: No
[2018-02-08] MEDS: ENOXAPARIN NA (PORCINE) 40 MG/0.4 ML DISP.SYRIN SQ SCH (11:54)
[2018-02-08] MEDS: amLODIPine BESYLATE 5 MG TABLET (FP) PO SCH (11:54)
[2018-02-08] MEDS: ASPIRIN 81 MG CHEWABLE TABLETS PO SCH (11:54)
[2018-02-08] MEDS: NAPH,MB-DB/K PH,MBDB POWDER PACKET PO SCH (11:55)
--- NOTE | 2018-02-08 12:54 | PN ---
Teaching Attending Note Name of Resident: Rochelle Santacruz ATTENDING PHYSICIAN STATEMENT I saw and evaluated the patient. I reviewed the resident's note and discussed the case with the resident. I agree with the resident's findings and plan as documented. SUBJECTIVE:states he feels better today. states cough is no longer productive. denies CP, SOB, fever, chills, N/V/C/D OBJECTIVE: Last Vital Signs Temp Pulse Resp BP Pulse Ox 99.1 F 78 20 108/63 97 02/08/18 10:11 02/08/18 10:11 02/08/18 10:11 02/08/18 10:11 02/07/18 21:00 General NAD Lungs Crackles L base. improved respiratory effort ASSESSMENT AND PLAN: 72yo M with PMH HTN, DM and dyslipidemia presented to the ER with Fevers and constituitional symptoms and found to be septic due to PNA 1. Sepsis due to PNA- Tm102.9. clinically appears improved. leukocytosis resolved. will cont Ceftriaxone day 3 and levaquin day 4. repeat Cx sent. legionella negaitve. spoke with ID. 2. Hyponatremia- possible dehydration. improved. 3. Hypomagnesemia- Mg po 4. Hypophosphatemia- resolved 5. HTN- controlled. on home meds 6. DM- hold oral agents. ISS and BGM 7. DVT ppx- lovenox
[2018-02-08] MEDS: ATORVASTATIN CA 10 MG TABLET (FP) PO SCH (21:27)
[2018-02-09 06:53] LABS: ANION GAP 12 MMOL/L (8-16); BLOOD UREA NITROGEN 15 mg/dL (7-18); CALCIUM 8.5 mg/dL (8.5-10.1); CHLORIDE 96 mmol/L (98-107); CO2 25 mmol/L (21-32); CREATININE 0.8 mg/dL (0.55-1.3); GLUCOSE,RANDOM 166 mg/dL (74-106); MAGNESIUM 1.7 mg/dL (1.8-2.4); PHOSPHOROUS 3.4 mg/dL (2.5-4.9); POTASSIUM 3.7 mmol/L (3.5-5.1); SODIUM 133 mmol/L (136-145)
[2018-02-09 06:55] LABS: HEMATOCRIT 36.3 % (35.4-49); HEMOGLOBIN 12.3 GM/dL (11.7-16.9); MCH 29.8 pg (25.7-33.7); MCHC 33.9 g/dl (32.0-35.9); MEAN CELL VOLUME 87.8 fl (80-96); MEAN PLT VOLUME 9.1 fl (7.5-11.1); PLATELET COUNT 180 K/MM3 (134-434); RBC 4.13 M/mm3 (4.00-5.60); RDW 14.1 % (11.9-15.9); WHITE BLOOD COUNT 4.3 K/mm3 (4.0-10.0)
[2018-02-09] MEDS ORDERED: MAGNESIUM OXIDE 400 MG TABLET (FP) PO ONE (06:55)
[2018-02-09] MEDS: INSULIN SLIDING SCALE (NOVOLOG) 1 VIAL SQ SCH ×2 (07:08→13:04)
[2018-02-09] MEDS ORDERED: MAGNESIUM SULF 50% (8.12 MEQ/2 ML-1 GM VIAL) IVPB ONE (09:00)
[2018-02-09] MEDS ORDERED: DEXTROSE 5%-WATER 100 ML IVPB ONE (09:43)
[2018-02-09] MEDS: CEFTRIAXONE 2 GM in DEXTROSE 5%-WATER 100 ML IVPB SCH (10:03)
[2018-02-09] MEDS: ENOXAPARIN NA (PORCINE) 40 MG/0.4 ML DISP.SYRIN SQ SCH (10:04)
[2018-02-09] MEDS: NAPH,MB-DB/K PH,MBDB POWDER PACKET PO SCH (10:04)
[2018-02-09] MEDS: ASPIRIN 81 MG CHEWABLE TABLETS PO SCH (10:04)
[2018-02-09] MEDS: amLODIPine BESYLATE 5 MG TABLET (FP) PO SCH (10:04)
--- NOTE | 2018-02-09 11:57 | PN ---
Teaching Attending Note Name of Resident: Rochelle Santacruz ATTENDING PHYSICIAN STATEMENT I saw and evaluated the patient. I reviewed the resident's note and discussed the case with the resident. I agree with the resident's findings and plan as documented. SUBJECTIVE:states his cough has resolved. denies Cp, SOb, fever, chills, N/V/C/D OBJECTIVE: Last Vital Signs Temp Pulse Resp BP Pulse Ox 98.1 F 69 20 128/69 92 L 02/09/18 05:58 02/09/18 05:58 02/09/18 05:58 02/09/18 05:58 02/08/18 21:00 General NAD Lungs CTA B/L no wheezing/rales/rhonchi ASSESSMENT AND PLAN: 72yo M with PMH HTN, DM and dyslipidemia presented to the ER with Fevers and constituitional symptoms and found to be septic due to PNA 1. Sepsis due to PNA-afebrile. leukocytosis resolved. on ceftriaxone day 4 and levaquin day 5. will d/w ID about switching to po. will need repeat CXR in 4-6 weeks. ID on board 2. Hyponatremia- possible dehydration. improved. 3. Hypomagnesemia- MgIV 4. Hypophosphatemia- resolved 5. HTN- controlled. on home meds 6. DM- hold oral agents. ISS and BGM 7. DVT ppx- lovenox 8. d/c home
[2018-02-09 14:48] VITALS: PULSE 72
[2018-02-09 15:09] VITALS: BP 139/65; TEMP 97.8
--- NOTE | 2018-02-09 15:50 | DS ---
Physical Exam: SUBJECTIVE: Patient seen and examined at bedside. States that he is feeling much better-he thinks that his cough is much better and did not have any more fevers overnight. Also thinks his breathing is much improved. He denies any CP/ SOB/N/V fevers or chills. OBJECTIVE: Vital Signs Period Temp Pulse Resp BP Sys/Schwartz Pulse Ox Last 24 Hr 97.8 F-98.5 F 69-72 18-20 110-139/65-77 92-92 PHYSICAL EXAM GENERAL: The patient is awake, alert, and fully oriented, in no acute distress. EYES: no scleral icterus. NECK: no JVD, no lymphadenopathy, no thryomegaly LUNGS: CTA B/L; no rales, rhonchi or wheezing. HEART: Regular rate and rhythm, S1, S2 without murmur, rub or gallop. ABDOMEN: Soft, nontender, nondistended, normoactive bowel sounds, no guarding, no rebound, no hepatosplenomegaly, no masses. EXTREMITIES: 2+ pulses, warm, well-perfused, no edema. PSYCH: Normal mood, normal affect. SKIN: Warm, dry, normal turgor, no rashes or lesions noted. LABS Laboratory Results - last 24 hr 02/08/18 02/08/18 02/09/18 17:25 20:25 05:30 WBC 4.3 RBC 4.13 Hgb 12.3 Hct 36.3 MCV 87.8 MCH 29.8 MCHC 33.9 RDW 14.1 Plt Count 180 MPV 9.1 Sodium Potassium Chloride Carbon Dioxide Anion Gap BUN Creatinine Creat Clearance w eGFR POC Glucometer 203 200 Random Glucose Calcium Phosphorus Magnesium 02/09/18 02/09/18 02/09/18 05:30 06:14 12:25 WBC RBC Hgb Hct MCV MCH MCHC RDW Plt Count MPV Sodium 133 L Potassium 3.7 Chloride 96 L Carbon Dioxide 25 Anion Gap 12 BUN 15 Creatinine 0.8 Creat Clearance w eGFR > 60 POC Glucometer 167 238 Random Glucose 166 H Calcium 8.5 Phosphorus 3.4 Magnesium 1.7 L Microbiology 02/05/18 15:07 Blood - Peripheral Venous Blood Culture - Preliminary NO GROWTH OBTAINED AFTER 96 HOURS, INCUBATION TO CONTINUE FOR 1 DAYS. 02/05/18 15:07 Blood - Peripheral Venous Blood Culture - Preliminary NO GROWTH OBTAINED AFTER 96 HOURS, INCUBATION TO CONTINUE FOR 1 DAYS. 02/07/18 21:45 Blood - Peripheral Venous Blood Culture - Preliminary NO GROWTH OBTAINED AFTER 24 HOURS, INCUBATION TO CONTINUE FOR 4 DAYS. 02/07/18 21:45 Blood - Peripheral Venous Blood Culture - Preliminary NO GROWTH OBTAINED AFTER 24 HOURS, INCUBATION TO CONTINUE FOR 4 DAYS. 02/05/18 16:00 Urine - Urine Clean Catch Urine Culture - Final NO GROWTH OBTAINED 02/06/18 06:23 Urine For Antigen Detection Legionella Antigen - Final 02/06/18 06:23 Urine For Antigen Detection Streptococcus pneumoniae Antigen (M - Final 02/05/18 16:41 Nasopharyngeal Swab Influenza Types A,B Antigen - Final 02/05/18 16:41 Nasopharyngeal Swab - Final Imaging: Chest XRAY Impression: New left midlung infiltrate. Chest CT with contrast: IMPRESSION: Left lower lobe consolidation compatible with pneumonia Cardiomegaly Small hiatal hernia. Right renal cyst. Distended urinary bladder with mild fullness of both renal collecting systems Ab/Pelvis CT: HOSPITAL COURSE: Date of Admission:02/05/18 72 y/o male with PMH of HTN, DM, HLD who presented to the ER with fevers, cough and constitutional symptoms. On arrival, patient was found to be febrile at 102.2, tachycardic and had a WBC count of 10.5 . A chest xray was done and showed a left lower lung infiltrate. A chest CT was also done showing a left lower lobe consolidation compatible with pneumonia. Patient was started on Levaquin 750 and given Tylenol for fever. Blood and urine cultures were drawn- in addition, patient was flu swabbed and also tested for legionella antigen given that he was also hyponatremic upon admission. We had the infectious disease doctor come and evaluate the patient once he got admitted. He suggested starting the patient on a second antibiotic so we started him on IV ceftriaxone , 2gram daily. His flu swab came back negative and so did his legionella. However, he kept spiking fevers off and on during his admissions, TMAX being 102.9. He was given tylenol regularly for fevers and on day 4 finally stopped spiking fevers. He was stable enough and improved to be discharged home with 5 more days of levaquin- no additional agent was needed. He was given strict instructions to follow up with his primary care doctor within one week of discharge. Date of Discharge: 02/09/18 Minutes to complete discharge: 39 Discharge Summary Reason For Visit: SEPSIS,PNEUMONIA Current Active Problems Hypomagnesemia (Acute) PNA (pneumonia) (Acute) Sepsis (Acute) Diabetes (Chronic) HTN (hypertension) (Chronic) Condition: Improved - Instructions Diet, Activity, Other Instructions: You came to the hospital with complaints of fevers, cough and trouble breathing. We did an XRAY of your chest and you were found to have a left midlobe pneumonia. We started treating you with two different antibiotics, one called levaquin and one called ceftriaxone, of which we still need you to continue taking the levaquin for 5 more days. Please resume all of your home medications in addition: -please take the antibiotic, Levaquin 750 daily for five more days Referrals: -please follow up with your primary care physician in one week.. You should have a repeat chest Xray in 4-6 weeks to make sure the infection is cleared. *if you begin to experience chest pain, shortness of breath, nausea, vomiting, fevers or chills please return to the emergency room immediately Disposition: HOME - Home Medications Comprehensive Discharge Medication List: Ambulatory Orders Glipizide [Glucotrol -] 10 mg PO BID 08/21/15 Metformin HCl [Glucophage] 1,000 mg PO BID 08/21/15 Amlodipine Besylate [Norvasc -] 5 mg PO DAILY 02/05/18 Aspirin [ASA -] 81 mg PO DAILY 02/05/18 Atorvastatin Ca [Lipitor] 10 mg PO HS 02/05/18 Pioglitazone HCl [Actos] 30 mg PO DAILY 02/07/18 Thalitone 50 mg PO DAILY 02/07/18 levoFLOXacin [Levaquin] 750 mg PO DAILY 5 Days #5 tab 02/09/18 Problem List - Problems (1) PNA (pneumonia) Code(s): J18.9 - PNEUMONIA, UNSPECIFIED ORGANISM Qualifiers: Pneumonia type: due to unspecified organism Laterality: left Lung location: lower lobe of lung Qualified Code(s): J18.1 - Lobar pneumonia, unspecified organism (2) Sepsis Code(s): A41.9 - SEPSIS, UNSPECIFIED ORGANISM Qualifiers: Sepsis type: sepsis due to unspecified organism Qualified Code(s): A41.9 - Sepsis, unspecified organism This patient is new to me today: No Emergency Visit: Yes ED Registration Date: 02/05/18 Care time: The patient presented to the Emergency Department on the above date and was hospitalized for further evaluation of their emergent condition. Critical Care patient: No - Discharge Referral [facility]erred to [facility] No
== END 2018-02-09 16:46 | disposition home or self-care (01) | DRG 871 ==
LOC: JER 14:25 → JERBED 19:42 → J8W 23:29
PROVIDERS: ADMIT Internal Medicine; ATTEND Internal Medicine
DX: A41.9 Sepsis, unspecified organism (principal); J18.9 Pneumonia, unspecified organism; E87.1 Hypo-osmolality and hyponatremia; I10 Essential (primary) hypertension; E78.5 Hyperlipidemia, unspecified; Z79.84 Long term (current) use of oral hypoglycemic drugs; E83.42 Hypomagnesemia; E83.39 Other disorders of phosphorus metabolism
CPT/HCPCS: 36415; 71045-TC-FY; 71260-TC; 74177-TC; 80048; 80053; 81003; 81015; 82803; 82962; 83605; 83735; 84100; 84484; 85025; 85027; 85610; 85730; 87040; 87086; 87804; 87899; 93005; 93010; 97116-GP; 97161-GP; 99285-25; J0131; J7030